=== PATIENT | male | born 1970 | race Caucasian/White ===

== ENCOUNTER 2019-05-23 05:41 | Outpatient (CLI) | payer BC ==
[~2019-05-23] VITALS: Ht 190.5 cm; Wt 115.0 kg
[2019-05-23] MEDS ORDERED: CANA300T PO (10:17)
[2019-05-23] MEDS ORDERED: ATOR40TA70 PO (10:17)
[2019-05-23] MEDS ORDERED: GEMF600T8 PO (10:17)
[2019-05-23] MEDS ORDERED: NAPR500T8 PO (10:17)
[2019-05-23] MEDS ORDERED: METF-397 PO (10:17)
[2019-05-23] MEDS ORDERED: LINA5TAB PO (10:17)
[2019-05-23] MEDS ORDERED: PIOG15TA9 PO (10:17)
[2019-05-23] MEDS ORDERED: QUIN40TA14 PO (10:17)
[2019-05-23] MEDS ORDERED: ERGO50006 PO (10:17)
[2019-05-23] MEDS ORDERED: PHEN37.53 PO (10:17)
== END 2019-05-23 10:20 | disposition home or self-care (01) ==
LOC: PREOP 05:41
PROVIDERS: ATTEND Internal Medicine
DX: Z01.818 Encounter for other preprocedural examination (principal)

== ENCOUNTER 2019-05-25 09:00 | Day surgery (SDC) | payer BC ==
--- NOTE | 2019-05-22 13:08 | HISTORY AND PHYSICAL ---
DATE OF SERVICE: COLONOSCOPY HISTORY AND PHYSICAL HISTORY: The patient is a 48-year-old white male referred for screening colonoscopy by Dr. Lin. He is seemed to be of higher than average risk as his father was diagnosed with colon cancer at the age of 46 and succumbed to disease at the age of 51. He also had an aunt on his father's side who of colon cancer at the age of 61 and a grandfather who of prostate cancer at the age of 72. He denies any change in bowel habit and has noted no blood in the stool. He did have sensation of right lower quadrant abnormality to palpation. He pushed on the area and at some point, it resolved. This was about six weeks ago. There has been no recurrence. He reports that he only has a bowel movement every 3 to 4 days and it is larger, but not particularly hard and he denies straining bright red blood per rectum or melena. He has had no change in weight. PAST MEDICAL HISTORY: Significant for type 2 diabetes mellitus, hyperlipidemia, and degenerative joint disease. He has no known history of vascular disease. MEDICATIONS ON ADMISSION: Include phentermine 37.5 mg daily, metformin 500 mg daily, 50,000 units of vitamin D weekly, Tradjenta 5 mg daily, Actos 15 mg daily, atorvastatin 40 mg daily, gemfibrozil 600 mg daily, and Naprosyn 500 mg b.i.d. p.r.n. PAST SURGICAL HISTORY: He has had an arthroscopic procedure on the right knee and rotator cuff repair on the right shoulder. 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 He occasionally smokes cigars. No cigarette exposure history. He has not had an alcoholic drink in almost 14 years. REVIEW OF SYSTEMS: CONSTITUTIONAL: He denies night sweats, chills, fever or change in weight. GASTROINTESTINAL: As noted in the HPI. CARDIOVASCULAR: He denies chest pain, palpitations, syncope, or presyncope. PULMONARY: He denies dyspnea on exertion, cough, or shortness of breath. FAMILY HISTORY: As noted in the HPI. PHYSICAL EXAMINATION: GENERAL: Reveals pleasant overweight white male in no acute distress. VITAL SIGNS: Weight is 253 pounds, roughly 6 feet tall. Blood pressure 124/70. HEENT: Unremarkable. He has a Mallampati II oropharyngeal configuration. Pharynx reveals no evidence for erythema. CHEST: Clear to auscultation. CARDIOVASCULAR: Reveals regular rate and rhythm without murmur, S3 or S4. ABDOMEN: Soft, supple without mass, organomegaly or tenderness. EXTREMITIES: Reveal no cyanosis, clubbing or edema. ASSESSMENT: The patient is set up for his first screening colonoscopy on 05/25/2019. Prep instructions and Suprep kit were given and questions were answered. He is higher than average risk considering his father was diagnosed with colon cancer at the age of 46 and one aunt who of colon cancer at the age of 61. I thank you for the referral of this pleasant gentleman. Job ID: [id number] DocumentID: [id number] Dictated Date: 05/22/2019 11:30:15 Shingle Packer Date: 05/22/2019 11:51:31 Dictated By: MARY LOU HORN MD MTDD
[~2019-05-25] VITALS: Ht 190.5 cm; Wt 115.0 kg
[2019-05-25] VITALS (14 sets, daily range): BP systolic 124–146; BP diastolic 58–90
[~2019-05-25 09:00] MED LIST: ATOR40TA70 PO; CANA300T PO; ERGO50006 PO; GEMF600T8 PO; LINA5TAB PO; METF-397 PO; NAPR500T8 PO; PHEN37.53 PO; PIOG15TA9 PO; QUIN40TA14 PO
[2019-05-25] MEDS ORDERED: D5 LR IV SOLUTION 1,000 ML IV STA (09:07)
[2019-05-25] MEDS ORDERED: D5 LR IV SOLUTION 1,000 ML IV ONE (09:10)
[2019-05-25] MEDS ORDERED: fentaNYL INJECTION 100 MCG/2 ML AMP IVP ONE (09:15)
[2019-05-25] MEDS ORDERED: LIDOCAINE JELLY 2% 6 ML SYRINGE MM PRN (09:15)
[2019-05-25] MEDS ORDERED: MIDAZOLAM 5 MG/5 ML (VERSED) VIAL IV PRN (09:15)
[2019-05-25] MEDS ORDERED: LIDOCAINE JELLY 2% 6 ML SYRINGE ONE (09:44)
[2019-05-25] MEDS ORDERED: MIDAZOLAM 5 MG/5 ML (VERSED) VIAL ONE (09:44)
--- NOTE | 2019-05-25 09:44 | Pre-Op Note & Conscious Sedat ---
Pre-Operative Progress Note H&P Reviewed The H&P was reviewed, patient examined and no changes noted. Date H&P Reviewed: May 25, 2019 Time H&P Reviewed: 07:35 Conscious Sedation Pre-Proced ASA Score 2 For ASA 3 and 4: Consider anesthesia and medical clearance. Also, for patients with a history of failed moderate sedation consider anesthesia. Airway Lungs Heart ASA score ASA 1: a normal healthy patient ASA 2: a patient with a mild systemic disease (mid diabetes, controlled hypertension, obesity ASA 3: a patient with a severe systemic disease that limits activity (angina, COPD, prior Myocardial infarction) ASA 4: a patient with an incapacitating disease that is a constant threat to life (CHF, renal failure) ASA 5: a moribund patient not expected to survive 24 hrs. (ruptured aneurysm) ASA 6: a declared brain- patient whose organs are being harvested. For emergent operations, add the letter E after the classification Mallampati Classification Grade 2 Sedation Plan Analgesia, Amnesia, Plan communicated to team members, Discussed options with patient/fam, Discussed risks with patient/fam The patient is an appropriate candidate to undergo the planned procedure, sedation, and anesthesia. The patient immediately re-assessed prior to indication. MARY LOU HORN MD May 25, 2019 09:44 POS
[2019-05-25] MEDS ORDERED: fentaNYL INJECTION 100 MCG/2 ML AMP ONE (09:45)
--- NOTE | 2019-05-25 13:38 | OPERATIVE REPORT ---
DATE OF SERVICE: 05/25/2019 COLONOSCOPY SUMMARY INDICATION FOR PROCEDURE: Screening colonoscopy. The patient deemed to be of higher than average risk due to family history for early colon cancer and the next case being father diagnosed at the age of 46. DESCRIPTION OF THE PROCEDURE: The patient was placed in the left lateral decubitus position. Prior to undergoing colonoscopy, digital rectal evaluation was performed. Anal sphincter tone was normal and the perianal reflex was intact. The prostate was normal in size, anodular, nontender to digital inspection. No abnormalities were noted on digital inspection of the anal canal or distal rectal vault. The colonoscope was then inserted into the rectum and under direct visualization advanced to cecum. The cecum was identified by identification of the ileocecal valve and cecal strap. Photographic documentation was obtained. Careful inspection was made. Quality of the prep was good. FINDINGS: A distal 2 mm hyperplastic appearing polyp was noted in the rectum, it was biopsied, ablated and submitted for histopathology. Two adjacent diminutive polyps were noted in the distal sigmoid colon. They were biopsied and ablated and submitted for histopathology as well. One hyperplastic appearing polyp was noted in the proximal sigmoid colon, which was biopsied and ablated and submitted for histopathology. No diverticular disease was noted. The descending colon, splenic flexure, transverse colon, ascending colon and cecum were unremarkable. ASSESSMENT: Four diminutive polyps were removed today via hot forceps, one from the distal rectum and two from the distal sigmoid and one from the proximal sigmoid with no significant blood loss. Considering family history as long as there are no surprises on histopathology report, we will advocate repeat surveillance colonoscopy in three years. I thank you for the referral of this pleasant gentleman. Sincerely, Job ID: [id number] DocumentID: [id number] Dictated Date: 05/25/2019 10:31:49 Asphalt Mixing Machine Operator Date: 05/25/2019 13:38:25 Dictated By: MARY LOU HORN MD
== END 2019-05-25 10:59 | disposition home or self-care (01) ==
LOC: ENDO 09:00
PROVIDERS: ATTEND Internal Medicine
DX: Z12.11 Encounter for screening for malignant neoplasm of colon (principal); K63.5 Polyp of colon; E11.9 Type 2 diabetes mellitus without complications; E78.5 Hyperlipidemia, unspecified; M19.90 Unspecified osteoarthritis, unspecified site; F17.210 Nicotine dependence, cigarettes, uncomplicated; Z80.0 Family history of malignant neoplasm of digestive organs
CPT/HCPCS: 82962; 88305